=== PATIENT | female | born 1965 | race Caucasian/White ===

== ENCOUNTER 2018-12-24 15:36 | Emergency (ER) | payer OTHER ==
[~2018-12-24] VITALS: Ht 157.5 cm; Wt 65.9 kg
[~2018-12-24 15:36] MED LIST: AMIT25TA9 PO; CARB100 PO; IBUP-2071 PO
[2018-12-24 17:06] LABS: BASOPHILS % (AUTO) 0.5 % (0.0-2.0); EOSINOPHILS % (AUTO) 0.3 % (1.0-6.0); HEMATOCRIT 40.9 % (36-46); HEMOGLOBIN 13.3 g/dL (12.0-16.0); LYMPHOCYTES % (AUTO) 16.5 % (22.0-44.0); MEAN CORPUSCULAR HEMOGLOBIN 28.8 pg (26.0-34.0); MEAN CORPUSCULAR HGB CONC 32.5 G/dL (31.0-37.0); MEAN CORPUSCULAR VOLUME 89 fL (80-100); MONOCYTES # (AUTO) 0.2 K/uL (0.1-1.0); MONOCYTES % (AUTO) 1.7 % (2.0-9.0); PLATELET COUNT (AUTO) 285 K/uL (150-450); RED BLOOD CELL COUNT(AUTO) 4.62 MIL/uL (4.00-5.20); RED CELL DISTRIBUTION WIDTH 13.7 % (11.5-14.5)
[2018-12-24 17:15] LABS: ANION GAP 10 mmol/L (8-16); CALCIUM, TOTAL 9.4 mg/dL (8.8-10.5); CARBON DIOXIDE 26 mmol/L (22-29); CHLORIDE 106 mmol/L (98-107); CREATININE 0.76 mg/dL (0.60-1.30); GLOMERULAR FILTR. RATE CALC > 60 mL/min (>60); GLUCOSE,RANDOM 124 mg/dL (70-110); POTASSIUM 3.6 mmol/L (3.5-5.1); SODIUM SERUM 142 mmol/L (136-145); UREA NITROGEN, BLOOD 21 mg/dL (7-18)
[2018-12-24 17:21] LABS: ALANINE AMINOTRANSFERASE 15 U/L (12-78); ALBUMIN 3.8 g/dL (3.4-5.0); ALKALINE PHOSPHATASE 141 U/L (46-116); ASPARTATE AMINOTRANSFERASE 8 U/L (15-37); BILIRUBIN,TOTAL 0.3 mg/dL (0.1-1.0); TOTAL PROTEIN, SERUM 7.1 g/dL (6.4-8.2)
[2018-12-24] MEDS ORDERED: SODIUM CHLORIDE 0.9% 1,000 ML IV ONE (17:45)
[2018-12-24] MEDS ORDERED: KETOROLAC TROMETHAMINE 30 MG/ML VIAL IVP ONE (17:45)
[2018-12-24 17:59] LABS: INFLUENZA TYPE A NEGATIVE FOR TYPE A (NEGATIVE); INFLUENZA TYPE B NEGATIVE FOR TYPE B (NEGATIVE)
[2018-12-24] MEDS ORDERED: DEXAMETHASONE 4 MG TABLET PO ONE (18:30)
[2018-12-24 18:40] VITALS: BP 98/63
== END 2018-12-24 19:03 | disposition home or self-care (01) ==
LOC: EMS 15:37
DX: B34.9 Viral infection, unspecified (principal); M79.10 Myalgia, unspecified site; G43.909 Migraine, unspecified, not intractable, without status migrainosus; Z90.710 Acquired absence of both cervix and uterus
CPT/HCPCS: 36415; 71046; 80053; 84484; 85025; 87804; 96374; 99284; J1885; J7030; J8540

== ENCOUNTER 2019-03-20 18:09 | Emergency (ER) | payer OTHER ==
[~2019-03-20] VITALS: Ht 162.6 cm; Wt 55.0 kg
[~2019-03-20 18:09] MED LIST changes: -AMIT25TA9 PO; -IBUP-2071 PO
[2019-03-20] MEDS ORDERED: LEVE500T53 PO (18:20)
[2019-03-20 18:48] LABS: BASOPHILS % (AUTO) 0.4 % (0.0-2.0); EOSINOPHILS % (AUTO) 0.4 % (1.0-6.0); HEMATOCRIT 40.2 % (36-46); HEMOGLOBIN 13.1 g/dL (12.0-16.0); LYMPHOCYTES # (AUTO) 1.2 K/uL (1.0-4.8); LYMPHOCYTES % (AUTO) 14.4 % (22.0-44.0); MEAN CORPUSCULAR HEMOGLOBIN 29.1 pg (26.0-34.0); MEAN CORPUSCULAR HGB CONC 32.7 G/dL (31.0-37.0); MEAN CORPUSCULAR VOLUME 89 fL (80-100); MONOCYTES # (AUTO) 0.2 K/uL (0.1-1.0); MONOCYTES % (AUTO) 2.2 % (2.0-9.0); NEUTROPHILS % (AUTO) 82.6 % (40.0-70.0); PLATELET COUNT (AUTO) 246 K/uL (150-450); RED BLOOD CELL COUNT(AUTO) 4.51 MIL/uL (4.00-5.20); RED CELL DISTRIBUTION WIDTH 13.6 % (11.5-14.5)
[2019-03-20 19:23] LABS: ANION GAP 8 mmol/L (8-16); CALCIUM, TOTAL 10.4 mg/dL (8.8-10.5); CARBON DIOXIDE 30 mmol/L (22-29); CHLORIDE 102 mmol/L (98-107); CREATININE 0.67 mg/dL (0.60-1.30); GLOMERULAR FILTR. RATE CALC > 60 mL/min (>60); GLUCOSE,RANDOM 187 mg/dL (70-110); POTASSIUM 4.1 mmol/L (3.5-5.1); SODIUM SERUM 140 mmol/L (136-145); UREA NITROGEN, BLOOD 14 mg/dL (7-18)
[2019-03-20 19:32] LABS: APPEARANCE,URINE TURBID (CLEAR); BILIRUBIN,URINE NEGATIVE (NEGATIVE); GLUCOSE, URINE (UA) NEGATIVE (NEGATIVE); KETONES,URINE NEGATIVE (NEGATIVE); LEUKOCYTE ESTERASE ,URINE TRACE (NEGATIVE); NITRATE,URINE NEGATIVE (NEGATIVE); OCCULT BLOOD,URINE NEGATIVE (NEGATIVE); PROTEIN,URINE NEGATIVE (NEGATIVE)
[2019-03-20 19:37] LABS: ALANINE AMINOTRANSFERASE 18 U/L (12-78); ALBUMIN 4.2 g/dL (3.4-5.0); ALKALINE PHOSPHATASE 125 U/L (46-116); ASPARTATE AMINOTRANSFERASE 13 U/L (15-37); BILIRUBIN,TOTAL 0.1 mg/dL (0.1-1.0); LIPASE 228 U/L (73-393)
[2019-03-20 19:39] LABS: BACTERIA,URINE Rare /HPF (None Seen); RBC,URINE 0-2 /HPF (0-2); SQUAMOUS EPITHELIAL CELL,UR Few /LPF (None Seen)
[2019-03-20] MEDS ORDERED: KETOROLAC TROMETHAMINE 30 MG/ML VIAL IVP ONE (19:45)
[2019-03-20] MEDS ORDERED: ONDANSETRON HCL 4 MG/2 ML VIAL IVP ONE (19:45)
[2019-03-20 19:59] LABS: CARBAMAZEPINE (TEGRETOL) 7.6 mcg/mL (4.0-12.0)
[2019-03-20 21:52] VITALS: BP 128/78
[2019-03-20] MEDS ORDERED: POLYETHYLENE GLYCOL 3350 17 GM PACKET PO ONE (22:00)
== END 2019-03-20 22:23 | disposition home or self-care (01) ==
LOC: EMS 18:10
DX: K58.0 Irritable bowel syndrome with diarrhea (principal)
CPT/HCPCS: 36415; 74022; 80053; 80156; 81001; 83690; 85025; 93005; 96374; 96375; 99285; J1885; J2405

== ENCOUNTER 2019-11-02 11:07 | Inpatient (IN) | payer OTHER ==
[~2019-11-02] VITALS: Ht 152.4 cm; Wt 61.7 kg
[~2019-11-02 11:07] MED LIST changes: +LEVE500T53 PO
[2019-11-02] MEDS ORDERED: ASPIRIN 325 MG TABLET PO ONE (12:00)
[2019-11-02] MEDS ORDERED: NITROGLYCERIN 0.4 MG SUBLINGUAL TABLET #25 SL ONE (12:00)
[2019-11-02 12:27] LABS: BASOPHILS % (AUTO) 0.6 % (0.0-2.0); EOSINOPHILS % (AUTO) 1.2 % (1.0-6.0); HEMATOCRIT 37.2 % (36-46); HEMOGLOBIN 12.5 g/dL (12.0-16.0); LYMPHOCYTES # (AUTO) 1.7 K/uL (1.0-4.8); MEAN CORPUSCULAR HEMOGLOBIN 29.6 pg (26.0-34.0); MEAN CORPUSCULAR HGB CONC 33.4 G/dL (31.0-37.0); MEAN CORPUSCULAR VOLUME 89 fL (80-100); MONOCYTES # (AUTO) 0.4 K/uL (0.1-1.0); MONOCYTES % (AUTO) 7.1 % (2.0-9.0); NEUTROPHILS # (AUTO) 3.8 K/uL (1.8-7.7); NEUTROPHILS % (AUTO) 63.1 % (40.0-70.0); PLATELET COUNT (AUTO) 244 K/uL (150-450); RED CELL DISTRIBUTION WIDTH 13.8 % (11.5-14.5)
[2019-11-02 13:04] LABS: ANION GAP 9 mmol/L (8-16); CALCIUM, TOTAL 9.5 mg/dL (8.8-10.5); CARBON DIOXIDE 28 mmol/L (22-29); CHLORIDE 106 mmol/L (98-107); CREATININE 0.68 mg/dL (0.60-1.30); GLOMERULAR FILTR. RATE CALC > 60 mL/min (>60); GLUCOSE,RANDOM 106 mg/dL (70-110); POTASSIUM 3.6 mmol/L (3.5-5.1); SODIUM SERUM 143 mmol/L (136-145); UREA NITROGEN, BLOOD 11 mg/dL (7-18)
[2019-11-02 13:10] LABS: ALANINE AMINOTRANSFERASE 17 U/L (12-78); ALBUMIN 3.7 g/dL (3.4-5.0); ALKALINE PHOSPHATASE 116 U/L (46-116); ASPARTATE AMINOTRANSFERASE 9 U/L (15-37); BILIRUBIN,TOTAL 0.2 mg/dL (0.1-1.0); CARBAMAZEPINE (TEGRETOL) 7.5 mcg/mL (4.0-12.0); TOTAL PROTEIN, SERUM 7.4 g/dL (6.4-8.2)
[2019-11-02 13:16] LABS: LIPASE 198 U/L (73-393)
[2019-11-02] MEDS ORDERED: NITROGLYCERIN 2% (1 GM=INCH) PACKET TP ONE (14:30)
[2019-11-02] MEDS ORDERED: ONDANSETRON HCL 4 MG/2 ML VIAL IVP PRN (14:30)
[2019-11-02] MEDS ORDERED: ACETAMINOPHEN 325 MG TABLET PO PRN (14:30)
[2019-11-02] MEDS ORDERED: MAGNESIUM HYDROXIDE SUSPENSION 30 ML UDCUP PO PRN (14:30)
[2019-11-02] MEDS ORDERED: 0.9% SODIUM CHLORIDE 10 ML SYRINGE IVP PRN (14:30)
[2019-11-02 16:36] VITALS: BP 108/79
[2019-11-02] MEDS: CarBAMazepine 100 MG CHEWABLE TABLET PO SCH ×2 (20:01→21:00)
[2019-11-02] MEDS: ACETAMINOPHEN 325 MG TABLET PO PRN (20:11)
[2019-11-02 20:31] VITALS: BP 119/76
[2019-11-02] MEDS: LevETIRAcetam 500 MG TABLET PO SCH (21:28)
[2019-11-03] VITALS (7 sets, daily range): BP systolic 96–121; BP diastolic 59–74
[2019-11-03] MEDS: ACETAMINOPHEN 325 MG TABLET PO PRN (05:32)
[2019-11-03] MEDS: CarBAMazepine 100 MG CHEWABLE TABLET PO SCH ×4 (08:42→20:59)
[2019-11-03] MEDS: FAMOTIDINE 20 MG TABLET PO SCH (08:42)
[2019-11-03] MEDS: LevETIRAcetam 500 MG TABLET PO SCH ×2 (08:42→20:59)
[2019-11-03] MEDS ORDERED: SUMAtriptan SUCCINATE 25 MG TABLET PO ONE (12:15)
[2019-11-03] MEDS ORDERED: SUMAtriptan SUCCINATE 25 MG TABLET PO PRN (13:30)
[2019-11-04 05:11] VITALS: BP 103/63
[2019-11-04 07:24] VITALS: BP 112/62
[2019-11-04] MEDS: CarBAMazepine 100 MG CHEWABLE TABLET PO SCH ×4 (07:46→20:57)
[2019-11-04] MEDS: LevETIRAcetam 500 MG TABLET PO SCH ×2 (07:46→20:57)
[2019-11-04] MEDS: FAMOTIDINE 20 MG TABLET PO SCH (07:46)
[2019-11-04 11:21] VITALS: BP 109/78
[2019-11-04 16:05] VITALS: BP 124/66
[2019-11-04] MEDS ORDERED: METOPROLOL TARTRATE 5 MG/5 ML VIAL IVP PRN (18:30)
[2019-11-04 19:39] VITALS: BP 125/66
[2019-11-04 23:13] VITALS: BP 101/62
[2019-11-05 03:58] VITALS: BP 109/68
[2019-11-05 08:15] VITALS: BP 109/71
[2019-11-05] MEDS: CarBAMazepine 100 MG CHEWABLE TABLET PO SCH ×3 (08:55→16:00)
[2019-11-05] MEDS: FAMOTIDINE 20 MG TABLET PO SCH (08:55)
[2019-11-05] MEDS: LevETIRAcetam 500 MG TABLET PO SCH (08:55)
[2019-11-05] MEDS ORDERED: SUMA25TA25 PO (11:13)
[2019-11-05] MEDS ORDERED: IOVERSOL 350 MG/ML 150 ML VIAL ONE (11:24)
[2019-11-05] MEDS ORDERED: SODIUM CHLORIDE 0.9% 100 ML ONE (11:24)
[2019-11-05] MEDS ORDERED: NITROGLYCERIN 400 MCG/SUBLINGUAL SPRAY 4.9 GM BOTTLE SL ONE (11:27)
[2019-11-05] MEDS ORDERED: METOPROLOL TARTRATE 5 MG/5 ML VIAL ONE (11:27)
[2019-11-05 11:30] VITALS: BP 127/83
[2019-11-05 16:21] VITALS: BP 113/77
== END 2019-11-05 17:10 | disposition home or self-care (01) | DRG 203 ==
LOC: EMS 11:10 → 5S 14:55
PROVIDERS: ADMIT Internal Medicine; ATTEND Internal Medicine
DX: R07.89 Other chest pain (principal); G40.909 Epilepsy, unspecified, not intractable, without status epilepticus; G43.909 Migraine, unspecified, not intractable, without status migrainosus; Z90.710 Acquired absence of both cervix and uterus; Z98.51 Tubal ligation status; Z88.8 Allergy status to other drugs, medicaments and biological substances; Z79.899 Other long term (current) drug therapy
CPT/HCPCS: 75574; 93005; 93306; G0480; J3490; J7050